=== PATIENT | female | born 1955 | race Caucasian/White ===

== ENCOUNTER 2017-09-02 13:41 | Outpatient (CLI) | payer OTHER | END 2017-09-02 15:53 | disposition home or self-care (01) | LOC: DCC 13:41 | DX: J45.909 Unspecified asthma, uncomplicated (principal); I10 Essential (primary) hypertension; M54.9 Dorsalgia, unspecified; E11.9 Type 2 diabetes mellitus without complications | CPT/HCPCS: G0463 ==